=== PATIENT | female | born 1945 | race Caucasian/White ===

== ENCOUNTER → 2024-01-24 13:15 | Outpatient (REF) | payer OTHER, SELFPAY | LOC: WDC 13:15 | PROVIDERS: ATTENDING PHYSICIAN Internal Medicine | DX: Z12.31 Encounter for screening mammogram for malignant neoplasm of breast (principal) | CPT/HCPCS: 77063; 77067 ==

== ENCOUNTER → 2024-11-12 10:52 | Outpatient (REF) | payer OTHER, SELFPAY | LOC: RAD 10:52 | PROVIDERS: ATTENDING PHYSICIAN Internal Medicine | DX: Z78.0 Asymptomatic menopausal state (principal) | CPT/HCPCS: 77080 ==

== ENCOUNTER → 2025-01-31 16:21 | Outpatient (REF) | payer OTHER, SELFPAY | LOC: WDC 16:21 | PROVIDERS: ATTENDING PHYSICIAN Internal Medicine | DX: Z12.31 Encounter for screening mammogram for malignant neoplasm of breast (principal) | CPT/HCPCS: 77063; 77067 ==